=== PATIENT | female | born 1940 | race Caucasian/White ===

== ENCOUNTER 2020-04-19 10:52 | Outpatient (CLI) | payer MEDICARE, BC ==
[2020-04-19] MEDS ORDERED: CARCD120C PO (11:30)
[2020-04-19 13:09] LABS: BASOPHILS % (AUTO) 0.3 % (0-1); EOSINOPHILS # (AUTO) 0.3 X10'3 (0-0.9); EOSINOPHILS % (AUTO) 6.9 % (0-6); LYMPHOCYTES # (AUTO) 0.9 X10'3 (1.1-4.8); LYMPHOCYTES % (AUTO) 22.4 % (21-51); MEAN CORPUSCULAR HEMOGLOBIN 32.6 PG (27.0-31.0); MEAN CORPUSCULAR HGB CONC 33.1 g/dL (33.0-36.5); MEAN CORPUSCULAR VOLUME 98.4 FL (78-98); MEAN PLATELET VOLUME 8.9 FL (7.4-10.4); MONOCYTES # (AUTO) 0.5 X10'3 (0-0.9); MONOCYTES % (AUTO) 12.9 % (2-12); NEUTROPHILS # (AUTO) 2.4 X10'3 (1.8-7.7); NEUTROPHILS % (AUTO) 57.5 % (42-75); PRE OP HEMATOCRIT 42.1 % (35.0-45.0); PRE OP HEMOGLOBIN 13.9 g/dL (12.0-16.0); PRE OP PLATELET COUNT 189 X10'3 (140-440); RED BLOOD COUNT 4.27 X10'6 (4.20-5.60); RED CELL DISTRIBUTION WIDTH 12.7 % (11.5-14.5)
[2020-04-19] MEDS ORDERED: DOCU100C40 PO (13:24)
[2020-04-19] MEDS ORDERED: BROM3DRO OP (13:24)
[2020-04-19] MEDS ORDERED: SIMV-42 PO (13:24)
[2020-04-19] MEDS ORDERED: APIX5TAB3 PO (13:24)
[2020-04-19] MEDS ORDERED: CHOL400T8 PO (13:24)
[2020-04-19] MEDS ORDERED: LEVO50TA8 PO (13:24)
[2020-04-19] MEDS ORDERED: POTA10CA44 PO (13:24)
[2020-04-19] MEDS ORDERED: ESTR42.53 VG (13:24)
[2020-04-19] MEDS ORDERED: PANT40TA54 PO (13:24)
[2020-04-19] MEDS ORDERED: FOLI0.4T14 PO (13:24)
[2020-04-19] MEDS ORDERED: NITR0.4T51 SL (13:24)
[2020-04-19] MEDS ORDERED: FURO20TA4 PO (13:24)
[2020-04-19] MEDS ORDERED: BIOT5000 PO (13:24)
[2020-04-19 13:26] LABS: ALBUMIN 4.1 G/DL (3.4-5.0); ALBUMIN/GLOBULIN RATIO 1.1 (1.1-1.5); ALKALINE PHOSPHATASE 69 IU/L (46-116); BLOOD UREA NITROGEN 24 MG/DL (7-18); CALCIUM 8.8 MG/DL (8.5-10.1); CHLORIDE 104 MMOL/L (99-107); CREATININE 0.75 MG/DL (0.40-0.90); PRE OP ALT 30 U/L (30-65); PRE OP ANION GAP 7 (8-16); PRE OP AST 35 U/L (10-37); PRE OP BILIRUB, TOTAL 0.5 MG/DL (0.0-1.0); PRE OP GLUCOSE 112 MG/DL (70-104); PRE OP SODIUM 144 MMOL/L (135-145); TOTAL CARBON DIOXIDE 32.6 MMOL/L (24-32); TOTAL PROTEIN 7.7 G/DL (6.4-8.2); eGFR 74 ML/MIN
[2020-04-19] MEDS ORDERED: [UNRECOGNIZED DRUG - OTHER] IM (13:28)
== END 2020-04-19 23:59 | disposition home or self-care (01) ==
LOC: PRE-OP 10:52 → EDSTATUS 04-25 09:15
PROVIDERS: ATTEND Orthopaedic Surgery
DX: Z01.812 Encounter for preprocedural laboratory examination (principal); S80.02XA Contusion of left knee, initial encounter; M19.012 Primary osteoarthritis, left shoulder; M19.011 Primary osteoarthritis, right shoulder; M75.121 Complete rotator cuff tear or rupture of right shoulder, not specified as traumatic; M75.122 Complete rotator cuff tear or rupture of left shoulder, not specified as traumatic; X58.XXXA Exposure to other specified factors, initial encounter; Y93.89 Activity, other specified; Y92.89 Other specified places as the place of occurrence of the external cause; Y99.8 Other external cause status; Z96.652 Presence of left artificial knee joint; Z20.822 Contact with and (suspected) exposure to COVID-19
CPT/HCPCS: 36415; 80053; 85025; 87635